=== PATIENT | female | born 1950 | race Caucasian/White ===

== ENCOUNTER → 2016-05-16 | Outpatient (CLI) | payer BC ==
[~2016-05-16] MED LIST: CA C1TAB28 PO; CALC600T5 PO; CRANBERRY CAPS; CYAN100018 PO; HCTZ; MAGN400C PO; MULT-761 PO; MULT1TAB53 PO; QUIN10TA PO; TAPE100T6 PO; TRAZ50TA18 PO; ZOLP10TA PO; [UNRECOGNIZED DRUG - REMARK]
== END | disposition home or self-care (01) ==
LOC: HKI 08:52
PROVIDERS: ATTEND Orthopaedic Surgery
DX: M17.11 Unilateral primary osteoarthritis, right knee (principal); M25.561 Pain in right knee; Z96.641 Presence of right artificial hip joint; Z96.652 Presence of left artificial knee joint
CPT/HCPCS: 20610; J1030

== ENCOUNTER → 2016-09-23 | Outpatient (CLI) | payer BC ==
--- NOTE | 2016-09-23 12:37 | RADRPT ---
PROCEDURE: Limited x-ray of both lower extremities. CLINICAL INDICATION: Bilateral leg pain. TECHNIQUE: Single frontal view of both lower extremities was obtained from the hips to the calves. COMPARISON: Right hip and pelvis radiographs dated 03/16/2016. FINDINGS: There is a right hip total arthroplasty which appears satisfactory. There is a normal appearing lef t hip. There are moderate degenerative changes of the right knee with osteophytes and joint space n arrowing. There is a left knee total arthroplasty. IMPRESSION: 1. Right hip arthroplasty left knee arthroplasty. 2. Moderate degenerative changes of the right knee. RPTAT: QQ .Lane Fiore MD, MD Date Time Electronically viewed and signed by .Lane Fiore MD, MD on 09/23/2016 12:36 .R/
--- NOTE | 2016-09-23 12:37 | RADRPT ---
PROCEDURE: Right knee radiographs. CLINICAL INDICATION: Right knee pain. TECHNIQUE: Four views. Weight bearing. Frontal, lateral, oblique, and patellar view. COMPARISON: 01/02/2015. FINDINGS: There is no fracture or dislocation. The soft tissues are normal. There are degenerative changes with osteophytes arising from all 3 joint compartment margins. There is lateral joint compartment narrowing and lateral patellofemoral joint compartment narrowing with associated deformity. There is no lytic or blastic lesion. There is no radiopaque foreign body. IMPRESSION: 1. Severe degenerative changes of the right knee. 2. Worse when compared with 01/02/2015. RPTAT: QQ .Lane Fiore MD, MD Date Time Electronically viewed and signed by .Lane Fiore MD, on 09/23/2016 12:37 .R/
== END | disposition home or self-care (01) ==
LOC: HKI 09:29
PROVIDERS: ATTEND Orthopaedic Surgery
DX: M25.562 Pain in left knee (principal); M25.561 Pain in right knee; R10.2 Pelvic and perineal pain; Z96.641 Presence of right artificial hip joint; Z96.652 Presence of left artificial knee joint
CPT/HCPCS: 77073

== ENCOUNTER 2016-10-04 05:40 | Inpatient (IN) | payer BC, MEDICARE ==
[2016-10-03 11:32] VITALS: BMI 26.7
[2016-10-04] VITALS (37 sets, daily range): BP systolic 104–142; BP diastolic 53–73; PULSE 60–90; RESP 11–18; Ht 167.6 cm; Wt 79.4 kg
[~2016-10-04] VITALS: Ht 167.6 cm; Wt 79.4 kg
[2016-10-04] MEDS ORDERED: BACITRACIN 50000 UNITS INJ ONE (06:36)
[2016-10-04] MEDS ORDERED: RANI300T3 PO (06:49)
[2016-10-04] MEDS ORDERED: FLUT9.9S NASAL (06:49)
[2016-10-04] MEDS ORDERED: PERICOLACE (06:49)
[2016-10-04] MEDS ORDERED: K DUR (06:49)
[2016-10-04] MEDS ORDERED: SODIUM CL BACTERIOSTATIC 30 ML INJ ONE (06:53)
[2016-10-04] MEDS ORDERED: POLYMYXIN B 500000 UNIT INJ ONE (06:53)
[2016-10-04] MEDS ORDERED: OXYC30TA PO (07:07)
[2016-10-04] MEDS ORDERED: CEPH500C PO (07:07)
[2016-10-04] MEDS ORDERED: MORP15TA92 PO (07:07)
[2016-10-04] MEDS ORDERED: MIDAZOLAM 1 MG/ML 2 ML INJ ONE (07:14)
[2016-10-04] MEDS ORDERED: PROPOFOL 100 ML ONE (07:14)
[2016-10-04] MEDS ORDERED: LIDOCAINE 2% (SDV) 5 ML INJ ONE (07:14)
--- NOTE | 2016-10-04 07:14 | HPN ---
Date/Time of Note Date/Time of Note DATE: 10/04/16 TIME: 07:13 Interval H&P Admission Note Pt. seen H&P reviewed: No system changes No change from H&P on 09/30/16 by AD Tejeda MD Oct 04, 2016 07:13
[2016-10-04] MEDS ORDERED: FENTAnyl 50 MCG/ML VIAL ONE (07:15)
[2016-10-04] MEDS ORDERED: CEFAZOLIN 1 GM INJ ONE (07:37)
[2016-10-04] MEDS ORDERED: ONDANSETRON 4 MG INJ ONE (07:56)
[2016-10-04] MEDS ORDERED: DEXAMETHASONE 4 MG/ML 1 ML INJ ONE (07:57)
[2016-10-04] MEDS ORDERED: FAMOTIDINE 20 MG INJ ONE (07:57)
[2016-10-04] MEDS: VANCOMYCIN 1 GM INJ ONE ×2 (08:22→08:29)
[2016-10-04] MEDS ORDERED: SOD CHLORIDE 0.9% IV ONE (09:00)
[2016-10-04] MEDS ORDERED: VANCOMYCIN 1 GM/NS 250 ML X1 BEFORE INCISION IVPB ONE (09:00)
[2016-10-04] MEDS ORDERED: PAIN COCKTAIL - VANCOMYCIN IRR ONE ×7 (09:00)
[2016-10-04] MEDS ORDERED: CELECOXIB 400 MG PO X1 DOSE PO ONE (09:00)
[2016-10-04] MEDS ORDERED: traMADOL 50 MG TAB X 1 DOSE PO ONE (09:00)
[2016-10-04] MEDS ORDERED: LACTATED RINGER'S 1,000 ML IV SCH (09:00)
[2016-10-04] MEDS ORDERED: BUPIVACAINE LIPOSOME/PF 266 MG/20 ML VIAL INFIL ONE (09:00)
[2016-10-04] MEDS ORDERED: oxyCODONE (CR) 10 MG TAB [oxyCONTIN] X1 DOSE PO ONE (09:00)
[2016-10-04] MEDS ORDERED: PREGABALIN 300 MG PO X1 PO ONE (09:00)
[2016-10-04] MEDS ORDERED: TRANEXAMIC ACID IV ONE (09:00)
[2016-10-04] MEDS ORDERED: EPHEDrine SULFATE 50 MG/5 ML SYG ONE (09:31)
--- NOTE | 2016-10-04 09:43 | OPR ---
Date/Time of Note Date/Time of Note DATE: 10/04/16 TIME: 09:39 Operative Report Free Text/Dictation Dictation # [id number] Preoperative Diagnosis Right Knee OA Postoperative Diagnosis Same Operation/Procedure Performed Right TKA Surgeon: AD INGRAM MD insurance administrative assistant: PEDRO LUNA PA-C Anesthesia: general, spinal Estimated Blood Loss: 50 - 100 ml's Specimens Bone and soft tissue Grafts/Implants Depuy Attune TKA Complications: None AD INGRAM MD Oct 04, 2016 09:43
[2016-10-04] MEDS ORDERED: NA PHOSPHATE/BIPHOS 133 ML ENEMA PR PRN (10:00)
[2016-10-04] MEDS ORDERED: NACL 0.9% 3 ML SYG IV SCH (10:00)
[2016-10-04] MEDS ORDERED: PROCHLORPERAZINE 10 MG INJ IV PRN (10:00)
[2016-10-04] MEDS ORDERED: MAGNESIUM HYDROXIDE 30ML CUP PO PRN (10:00)
[2016-10-04] MEDS ORDERED: ASPIRIN (EC) 325 MG TAB PO ONE (10:00)
[2016-10-04] MEDS ORDERED: BISACODYL 10 MG SUPP PR PRN (10:00)
[2016-10-04] MEDS ORDERED: FENTAnyl 50 MCG/ML VIAL IV PRN ×3 (10:00)
[2016-10-04] MEDS ORDERED: DIPHENHYDRAMINE 50 MG INJ IV PRN (10:00)
[2016-10-04] MEDS ORDERED: HYDROmorphONE (0.2 MG/ML) 10ML SYG IV PRN ×3 (10:00)
[2016-10-04] MEDS ORDERED: MEPERIDINE 25 MG INJ IV PRN (10:00)
[2016-10-04] MEDS ORDERED: DIPHENHYDRAMINE 25 MG CAP PO PRN (10:00)
[2016-10-04] MEDS ORDERED: ONDANSETRON 4 MG INJ IV PRN ×2 (10:00)
--- NOTE | 2016-10-04 10:07 | PN ---
Date/Time of Note Date/Time of Note DATE: 10/04/16 TIME: 10:06 Assessment/Plan Lines/Catheters IV Catheter Type (from Nrsg): Peripheral IV Assessment/Plan Assessment/Plan Stable in PACU, s/p right TKA -continue Ancef -pain meds as needed -ASA/SCDs -OOB with PT -check AM labs -monitor drain -d/c cordoba in AM XR of the right knee is pending at this time Subjective 24 Hr Interval Summary Stable in PACU. Denies pain. Moving all extremities. Exam/Review of Systems Vital Signs Vitals Vital Signs Date Time Temp Pulse Resp B/P Pulse Ox O2 Delivery O2 Flow Rate FiO2 10/04/16 09:46 97.7 10/04/16 09:42 90 16 142/71 100 Mask Exam Free Text/Dictation Hemovac: minimal Dressing dry Incision clean, dry, and intact without redness or drainage Thigh soft 5/5 Quadriceps, Tibialis Anterior, EHL, Gastroc, Soleus, Peroneals Normal sensation Palpable DT/PT, CR <2 sec No distal edema PEDRO LUNA PA-C Oct 04, 2016 10:07
[2016-10-04] MEDS: CEFAZOLIN 2 GM/50 ML (PMX) 50 ML IVPB SCH ×2 (10:24→17:37)
[2016-10-04] MEDS ORDERED: TRANEXAMIC ACID in SOD CHLORIDE 0.9% 100 ML FOR INTRAOP IVPB ONE (11:00)
[2016-10-04 11:03] LABS: HEMATOCRIT 33.5 % (37.0-47.0); HEMOGLOBIN 10.9 g/dl (12.0-16.0)
--- NOTE | 2016-10-04 11:12 | RADRPT ---
PROCEDURE: CR Right Knee CLINICAL INDICATION: Postop TECHNIQUE: An AP and lateral radiographs were submitted. COMPARISON: 09/23/2016 FINDINGS: Osseous Structures: Since the previous study, the patient has undergone a total knee replacement and the components appear well seated. The osseous elements are otherwise rarefied but intact. Join Spaces: The joint spaces are well maintained. No joint effusion is identified. Soft Tissues: A surgical drain has been placed. Subcutaneous air is evident and ventral capri hav e been placed. IMPRESSION: 1. The patient has undergone an interval total right knee replacement with the components well-seat ed. 2. Postop subcutaneous air, a drain and capri are noted. Physician Candace Date Time Electronically viewed and signed by Physician Candace on 10/04/2016 11:11 /
[2016-10-04 11:25] LABS: CALCIUM 8.9 mg/dl (8.4-10.2); CREATININE 0.58 mg/dl (0.44-1.00); POTASSIUM 3.7 mmol/L (3.5-5.1)
[2016-10-04] MEDS ORDERED: HYDROCHLOROTHIAZIDE 12.5 MG CAP PO SCH (13:00)
[2016-10-04] MEDS ORDERED: TRANEXAMIC ACID 790 MG in SOD CHLORIDE 0.9% 100 ML IVPB ONE ×2 (13:00→16:00)
[2016-10-04] MEDS: traMADol 50 MG TAB PO SCH ×2 (13:13→17:37)
[2016-10-04] MEDS: LACTATED RINGER'S 1,000 ML IV SCH ×2 (13:14→17:38)
[2016-10-04] MEDS: oxyCODONE 5 MG TAB PO PRN ×4 (13:57→23:33)
[2016-10-04] MEDS ORDERED: EXPAREL NOTE (BUPIVICAINE LIPOSOMAL) XX SCH (15:30)
[2016-10-04] MEDS: HYDROCHLOROTHIAZIDE 12.5 MG CAP PO SCH (17:00)
[2016-10-04] MEDS: PANTOPRAZOLE (EC) 40 MG TAB PO SCH (17:37)
[2016-10-04 18:25] LABS: CALCIUM 8.8 mg/dl (8.4-10.2); CREATININE 0.57 mg/dl (0.44-1.00); POTASSIUM 4.2 mmol/L (3.5-5.1)
[2016-10-04] MEDS: PREGABALIN 50 MG CAP PO SCH (20:35)
[2016-10-04] MEDS: RANITIDINE 150 MG TAB PO SCH (20:35)
[2016-10-04] MEDS: DOCUSATE SODIUM 100 MG CAP PO SCH (20:35)
[2016-10-04] MEDS: HYDROmorphONE 1 MG/ML SYG IV PRN (20:40)
[2016-10-05] VITALS: BP 120/56; RESP 19
[2016-10-05 00:07] VITALS: BP 120/56; RESP 18
[2016-10-05] MEDS: traMADol 50 MG TAB PO SCH ×4 (00:08→17:06)
[2016-10-05] MEDS: CEFAZOLIN 2 GM/50 ML (PMX) 50 ML IVPB SCH (01:09)
[2016-10-05] MEDS: LACTATED RINGER'S 1,000 ML IV SCH ×2 (01:38→05:11)
[2016-10-05] MEDS: HYDROmorphONE 1 MG/ML SYG IV PRN ×6 (02:36→22:01)
[2016-10-05] MEDS ORDERED: HYDROmorphONE 0.2 MG/ML PCA IV SCH ×2 (03:30→03:33)
[2016-10-05 05:36] LABS: HEMATOCRIT 28.5 % (37.0-47.0); HEMOGLOBIN 9.1 g/dl (12.0-16.0)
[2016-10-05 06:09] LABS: CALCIUM 8.7 mg/dl (8.4-10.2); CREATININE 0.61 mg/dl (0.44-1.00); POTASSIUM 4.1 mmol/L (3.5-5.1)
[2016-10-05 06:19] LABS: ADD UMIC YES; UR ASCORBIC ACID NEGATIVE (NEGATIVE); UR BACTERIA FEW /HPF (NONE SEEN); UR BILIRUBIN (Dip) NEGATIVE (NEGATIVE); UR BLOOD (Dip) 2+ mg/dL (NEGATIVE); UR CLARITY CLEAR (CLEAR); UR COLOR YELLOW (YELLOW); UR GLUCOSE (Dip) NEGATIVE (NEGATIVE); UR KETONES (Dip) NEGATIVE (NEGATIVE); UR LEUKOCYTE ESTERASE (Dip) 2+ Leu/ul (NEGATIVE); UR NITRITE (Dip) NEGATIVE (NEGATIVE); UR RBC 34 /HPF (0-5); UR SPECIFIC GRAVITY (Dip) 1.018 (1.003-1.030); UR TOTAL PROTEIN (Dip) NEGATIVE (NEGATIVE); UR UROBILINOGEN (Dip) NEGATIVE (NEGATIVE)
[2016-10-05] MEDS: PANTOPRAZOLE (EC) 40 MG TAB PO SCH ×2 (06:44→17:06)
[2016-10-05 08:02] VITALS: BP 113/57; RESP 19
--- NOTE | 2016-10-05 08:18 | PN ---
Date/Time of Note Date/Time of Note DATE: 10/05/16 TIME: 08:14 Assessment/Plan Lines/Catheters IV Catheter Type (from Nrsg): Peripheral IV Urinary Cath still in place: Yes Assessment/Plan Chief Complaint/Hosp Course 1. Status post total right knee arthroplasty Continue pain control continue PT OT Follow-up with general surgery 2 hyponatremia -Etiology likely due to transient SIADH from underlying pain and stress -We will do full workup by checking urine sodium and osmolarity serum osmolarity -We will DC IV fluids, limit free water intake no more than 800 cc 3. Hypertension continue current blood pressure at 4. Anemia monitor H&H 5. GI DVT prophylaxis 6 UTI continue Keflex 500 mg twice daily Problems: Subjective 24 Hr Interval Summary Free Text/Dictation Patient seen and examined. Complains of pain placed on a [employer]OVELTY CANDY [employer]KER Exam/Review of Systems Vital Signs Vitals Vital Signs Date Time Temp Pulse Resp B/P Pulse Ox O2 Delivery O2 Flow Rate FiO2 10/05/16 08:02 99.2 57 19 113/57 100 10/04/16 17:46 Room Air 10/04/16 09:58 8.0 Intake and Output 10/04/16 10/04/16 10/05/16 15:00 23:00 07:00 Intake Total 2107.9 ml 1320 ml 1550 ml Output Total 1060 ml 2590 ml 1200 ml Balance 1047.9 ml -1270 ml 350 ml Exam HEENT head is normocephalic pupils are reactive to light neck is supple cardiovascular regular rate Lungs show diminished breath sounds bases otherwise clear abdomen soft nontender palpation rebound guarding extremities are negative for clubbing cyanosis or edema and left leg Right leg and he has dressing clean dry intact neurologically no focal deficits dermatologically no rashes muscle skeletal no joint effusion Results Result Diagram: 10/05/16 0501 10/05/16 0501 Results 24 hrs Laboratory Tests Test 10/04/16 10:32 10/04/16 17:40 10/05/16 05:00 10/05/16 05:01 Hemoglobin 10.9 L 9.1 L Hematocrit 33.5 L 28.5 L Sodium Level 126 L 126 L 126 L Potassium Level 3.7 4.2 4.1 Chloride Level 96 L 96 L 96 L Carbon Dioxide Level 26 27 28 Anion Gap 8 7 L 6 L Blood Urea Nitrogen 9 9 10 Creatinine 0.58 0.57 0.61 Glucose Level 128 130 94 Calcium Level 8.9 8.8 8.7 Urine Color YELLOW Urine Clarity CLEAR Urine pH 6.0 Urine Specific Webber 1.018 Urine Ketones NEGATIVE Urine Nitrite NEGATIVE Urine Bilirubin NEGATIVE Urine Urobilinogen NEGATIVE Urine Leukocyte Esterase 2+ H Urine Microscopic RBC 34 H Urine Microscopic WBC 11 H Urine Bacteria FEW A Urine Hemoglobin 2+ H Urine Glucose NEGATIVE Urine Total Protein NEGATIVE Medications Medications Current Medications Miscellaneous Information 1 ea NOTE XX ; Start 10/04/16 at 15:30; Stop 10/08/16 at 15:29 Ranitidine HCl (Zantac) 300 mg QHS PO Last administered on 10/04/16 20:35; Admin Dose 300 MG; Start 10/04/16 at 21:00 Benazepril HCl (Lotensin) 10 mg DAILY PO ; Start 10/05/16 at 09:00 Tramadol HCl (Ultram) 50 mg Q6 PO Last administered on 10/05/16 06:44; Admin Dose 50 MG; Start 10/04/16 at 12:00; Stop 10/07/16 at 11:59 Oxycodone HCl (Roxicodone) 5 mg Q4H PRN PO PAIN LEVEL 1-3 Last administered on 10/04/16 14:02; Admin Dose 5 MG; Start 10/04/16 at 10:00 Oxycodone HCl (Roxicodone) 10 mg Q4H PRN PO PAIN LEVEL 4-7 Last administered on 10/04/16 23:33; Admin Dose 10 MG; Start 10/04/16 at 10:00 Hydromorphone HCl (Dilaudid) 1 mg Q3H PRN IV PAIN LEVEL 8-10 Last administered on 10/05/16 02:36; Admin Dose 1 MG; Start 10/04/16 at 10:00 Ondansetron HCl (Zofran Inj) 4 mg Q6H PRN IV NAUSEA AND/OR VOMITING; Start 02/10 at 10:00 Bisacodyl (Dulcolax Supp) 10 mg Q12H PRN [place] CONSTIPATION; Start 10/04/16 at 10: 00 Magnesium Hydroxide (Milk Of Mag) 30 ml BID PRN PO CONSTIPATION; Start at 10:00 Sodium Biphosphate/ Sodium Phosphate (Fleet Enema) 133 ml DAILY PRN [place] CONSTIPATION; Start 10/04/16 at 10:00 Docusate Sodium (Colace) 100 mg BID PO Last administered on 10/04/16 20:35; Admin Dose 100 MG; Start 10/04/16 at 21:00 Diphenhydramine HCl (Benadryl) 25 mg Q6H PRN PO PRURITUS; Start 10/04/16 at 10: 00 Aspirin (Ecotrin) 325 mg BID PO ; Start 10/05/16 at 21:00 Pantoprazole (Protonix Tab) 40 mg BID@06,18 PO Last administered on 10/05/16 06:44; Admin Dose 40 MG; Start 10/04/16 at 18:00 Pregabalin (Lyrica) 50 mg BID PO Last administered on 10/04/16 20:35; Admin Dose 50 MG; Start 10/04/16 at 21:00 Hydrochlorothiazide (Hydrochlorothiazide) 12.5 mg DAILY@17 PO ; Start 10/04/16 at 17:00 Hydromorphone HCl (Dilaudid [employer]) 6 mg Q4PCA IV Last administered on 10/05/16 03:48; Admin Dose 6 MG; Start 10/05/16 at 03:33 MORGAN CONNELLY DO Oct 05, 2016 08:18
[2016-10-05] MEDS: PREGABALIN 50 MG CAP PO SCH ×2 (08:44→21:09)
[2016-10-05] MEDS: CEPHALEXIN 500 MG CAP PO SCH ×2 (08:44→20:05)
[2016-10-05] MEDS: DOCUSATE SODIUM 100 MG CAP PO SCH ×2 (08:44→20:05)
[2016-10-05] MEDS: BENAZEPRIL 10 MG TAB PO SCH (08:45)
--- NOTE | 2016-10-05 08:55 | PN ---
Date/Time of Note Date/Time of Note DATE: 10/05/16 TIME: 08:50 Assessment/Plan Lines/Catheters IV Catheter Type (from Nrsg): Peripheral IV Joshua in Place (from Nrsg): Yes Assessment/Plan Assessment/Plan POD #1, s/p right TKA -d/c ancef -pain meds switched to oxycodone 30mg q4 and MS contin 20mg q8 as she was taking pre-operatively -ASA/SCDs -drain removed -OOB with PT -check AM labs -discharge planning. Will plan to go home upon discharge Subjective 24 Hr Interval Summary Having moderate pain overnight. H/o chronic pain, currently in pain management. 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 Denies f/c. VSS, afebrile. Will plan to go home upon discharge. Exam/Review of Systems Vital Signs Vitals Vital Signs Date Time Temp Pulse Resp B/P Pulse Ox O2 Delivery O2 Flow Rate FiO2 10/05/16 08:02 99.2 57 19 113/57 100 10/04/16 17:46 Room Air 10/04/16 09:58 8.0 Intake and Output 10/04/16 10/04/16 10/05/16 15:00 23:00 07:00 Intake Total 2107.9 ml 1320 ml 1550 ml Output Total 1060 ml 2590 ml 1200 ml Balance 1047.9 ml -1270 ml 350 ml Exam Free Text/Dictation Hemovac: 300cc Dressing dry Incision clean, dry, and intact without redness or drainage Thigh soft 5/5 Quadriceps, Tibialis Anterior, EHL, Gastroc, Soleus, Peroneals Normal sensation Palpable DT/PT, CR <2 sec No distal edema Results Result Diagram: 10/05/16 0501 10/05/16 0501 PEDRO LUNA PA-C Oct 05, 2016 08:54
[2016-10-05] MEDS ORDERED: CEPASTAT LOZENGE MT PRN (09:26)
[2016-10-05] MEDS: oxyCODONE 15 MG TAB PO PRN ×3 (11:08→20:05)
[2016-10-05] MEDS: morphine (ER) 15 MG TAB PO SCH ×2 (14:27→22:01)
[2016-10-05 16:38] VITALS: BP 121/62; PULSE 65
[2016-10-05] MEDS: HYDROCHLOROTHIAZIDE 12.5 MG CAP PO SCH (17:06)
[2016-10-05] MEDS ORDERED: HYDROmorphONE 1 MG/ML SYG IV PRN (18:00)
[2016-10-05 19:00] VITALS: BP 117/56; RESP 18
[2016-10-05] MEDS: RANITIDINE 150 MG TAB PO SCH (20:05)
[2016-10-05] MEDS: ASPIRIN (EC) 325 MG TAB PO SCH (21:09)
[2016-10-06] MEDS: traMADol 50 MG TAB PO SCH ×5 (00:07→23:44)
[2016-10-06] MEDS: oxyCODONE 15 MG TAB PO PRN ×6 (00:32→23:44)
[2016-10-06] MEDS: HYDROmorphONE 1 MG/ML SYG IV PRN ×5 (03:03→21:35)
[2016-10-06] MEDS: PANTOPRAZOLE (EC) 40 MG TAB PO SCH ×2 (04:48→17:28)
[2016-10-06 05:48] LABS: HEMATOCRIT 32.4 % (37.0-47.0)
[2016-10-06 06:05] LABS: CALCIUM 8.6 mg/dl (8.4-10.2); CREATININE 0.55 mg/dl (0.44-1.00); POTASSIUM 3.5 mmol/L (3.5-5.1)
[2016-10-06] MEDS: morphine (ER) 15 MG TAB PO SCH ×3 (06:18→21:33)
[2016-10-06] MEDS: PREGABALIN 50 MG CAP PO SCH ×2 (08:11→21:33)
[2016-10-06] MEDS: DOCUSATE SODIUM 100 MG CAP PO SCH ×2 (08:11→21:33)
[2016-10-06] MEDS: CEPHALEXIN 500 MG CAP PO SCH (08:11)
[2016-10-06] MEDS: BENAZEPRIL 10 MG TAB PO SCH (08:11)
[2016-10-06] MEDS: ASPIRIN (EC) 325 MG TAB PO SCH ×2 (08:11→21:33)
[2016-10-06 08:31] VITALS: BP 124/56; RESP 16
--- NOTE | 2016-10-06 08:32 | PN ---
Date/Time of Note Date/Time of Note DATE: 10/06/16 TIME: 08:29 Assessment/Plan Lines/Catheters IV Catheter Type (from Nrsg): Saline Lock Urinary Cath still in place: No Assessment/Plan Chief Complaint/Hosp Course 1. Status post total right knee arthroplasty Continue pain control continue PT OT Follow-up with general surgery 2 hyponatremia -Etiology likely due to transient SIADH from underlying pain and stress --Urine studies consistent with SIADH =-Sodium levels improving with free water restriction, continue 3. Hypertension continue current blood pressure at 4. Anemia monitor H&H 5. GI DVT prophylaxis 6 UTI -Urine cultures negative -We Will Discontinue Keflex 7. History of fungal urinary infection -We will give prophylactic Diflucan 150 mg p.o. 1 Problems: Subjective 24 Hr Interval Summary Free Text/Dictation Patient is complaining of possible fungal yeast infection -Pain is controlled Working with physical therapy Exam/Review of Systems Vital Signs Vitals Vital Signs Date Time Temp Pulse Resp B/P Pulse Ox O2 Delivery O2 Flow Rate FiO2 10/05/16 19:00 98.1 81 18 117/56 97 10/04/16 17:46 Room Air 10/04/16 09:58 8.0 Intake and Output 10/05/16 10/05/16 10/06/16 15:00 23:00 07:00 Intake Total 250 ml 660 ml 160 ml Output Total 850 ml 600 ml Balance 250 ml -190 ml -440 ml Exam HEENT head is normocephalic pupils are reactive to light neck is supple cardiovascular regular rate Lungs show diminished breath sounds bases otherwise clear abdomen soft nontender palpation rebound guarding extremities are negative for clubbing cyanosis or edema and left leg Right leg and he has dressing clean dry intact neurologically no focal deficits dermatologically no rashes muscle skeletal no joint effusion Results Result Diagram: 10/06/16 0505 10/06/16 0505 Results 24 hrs Laboratory Tests Test 10/05/16 14:30 10/05/16 14:35 10/06/16 05:05 10/06/16 05:42 Urine Osmolality 318 Sodium Level 125 L 131 L Osmolality 271 L Hemoglobin 10.0 L Hematocrit 32.4 L Potassium Level 3.5 Chloride Level 96 L Carbon Dioxide Level 30 Anion Gap 9 Blood Urea Nitrogen 7 Creatinine 0.55 Glucose Level 98 Calcium Level 8.6 Lab Scanned Report REFERENCE LAB Medications Medications Current Medications Miscellaneous Information 1 ea NOTE XX ; Start 10/04/16 at 15:30; Stop 10/08/16 at 15:29 Ranitidine HCl (Zantac) 300 mg QHS PO Last administered on 10/05/16 20:05; Admin Dose 300 MG; Start 10/04/16 at 21:00 Benazepril HCl (Lotensin) 10 mg DAILY PO Last administered on 10/06/16 08:11; Admin Dose 10 MG; Start 10/05/16 at 09:00 Tramadol HCl (Ultram) 50 mg Q6 PO Last administered on 10/06/16 06:18; Admin Dose 50 MG; Start 10/04/16 at 12:00; Stop 10/07/16 at 11:59 Oxycodone HCl (Roxicodone) 10 mg Q4H PRN PO PAIN LEVEL 4-7 Last administered on 10/04/16 23:33; Admin Dose 10 MG; Start 10/04/16 at 10:00 Ondansetron HCl (Zofran Inj) 4 mg Q6H PRN IV NAUSEA AND/OR VOMITING; Start 02/10 at 10:00 Bisacodyl (Dulcolax Supp) 10 mg Q12H PRN [place] CONSTIPATION; Start 10/04/16 at 10: 00 Magnesium Hydroxide (Milk Of Mag) 30 ml BID PRN PO CONSTIPATION Last administered on 10/05/16 21:08; Admin Dose 30 ML; Start 10/04/16 at 10:00 Sodium Biphosphate/ Sodium Phosphate (Fleet Enema) 133 ml DAILY PRN [place] CONSTIPATION; Start 10/04/16 at 10:00 Docusate Sodium (Colace) 100 mg BID PO Last administered on 10/06/16 08:11; Admin Dose 100 MG; Start 10/04/16 at 21:00 Diphenhydramine HCl (Benadryl) 25 mg Q6H PRN PO PRURITUS; Start 10/04/16 at 10: 00 Aspirin (Ecotrin) 325 mg BID PO Last administered on 10/06/16 08:11; Admin Dose 325 MG; Start 10/05/16 at 21:00 Pantoprazole (Protonix Tab) 40 mg BID@,18 PO Last administered on 10/06/16 04:48; Admin Dose 40 MG; Start 10/04/16 at 18:00 Pregabalin (Lyrica) 50 mg BID PO Last administered on 10/06/16 08:11; Admin Dose 50 MG; Start 10/04/16 at 21:00 Hydrochlorothiazide (Hydrochlorothiazide) 12.5 mg DAILY@17 PO Last administered on 10/05/16 17:06; Admin Dose 12.5 MG; Start 10/04/16 at 17:00 Cephalexin (Keflex) 500 mg BID PO Last administered on 10/06/16 08:11; Admin Dose 500 MG; Start 10/05/16 at 09:00 Oxycodone HCl (Roxicodone) 30 mg Q4H PRN PO PAIN LEVEL 6-10 Last administered on 10/06/16 04:48; Admin Dose 30 MG; Start 10/05/16 at 11:02 Morphine Sulfate (Ms Contin (Er)) 15 mg Q8 PO Last administered on 10/06/16 06 :18; Admin Dose 15 MG; Start 10/05/16 at 14:00 Phenol (Cepastat Lozenge) 1 lozenge Q1H PRN [place] sorethroat Last administered on 10/05/16 15:22; Admin Dose 1 LOZENGE; Start 10/05/16 at 09:26 Hydromorphone HCl (Dilaudid) 1 mg Q2H PRN IV PAIN LEVEL 8-10 Last administered on 10/06/16 08:11; Admin Dose 1 MG; Start 10/05/16 at 16:27 MORGAN CONNELLY DO Oct 06, 2016 08:32
[2016-10-06] MEDS ORDERED: FLUCONAZOLE 150 MG TAB PO ONE (09:30)
[2016-10-06 13:58] VITALS: BP 123/67; RESP 18
--- NOTE | 2016-10-06 15:30 | PN ---
Date/Time of Note Date/Time of Note DATE: 10/06/16 TIME: 15:26 Assessment/Plan Lines/Catheters IV Catheter Type (from Nrsg): Saline Lock Joshua in Place (from Nrsg): No Assessment/Plan Assessment/Plan Stable POD #2, s/p right TKA -pain meds as needed. Continue current pain management -ASA/SCDs -OOB with PT -check AM labs -dressing changed -discharge planning. Will likely be discharge home tomorrow Subjective 24 Hr Interval Summary No acute overnight events. Having mild pain but has chronic pain. VSS, afebrile. H&H stable. Progressing with PT. Exam/Review of Systems Vital Signs Vitals Vital Signs Date Time Temp Pulse Resp B/P Pulse Ox O2 Delivery O2 Flow Rate FiO2 10/06/16 13:58 97.4 81 18 123/67 96 10/04/16 17:46 Room Air 10/04/16 09:58 8.0 Intake and Output 10/05/16 10/05/16 10/06/16 15:00 23:00 07:00 Intake Total 250 ml 660 ml 160 ml Output Total 850 ml 600 ml Balance 250 ml -190 ml -440 ml Exam Free Text/Dictation Dressing dry Incision clean, dry, and intact without redness or drainage Thigh soft 5/5 Quadriceps, Tibialis Anterior, EHL, Gastroc, Soleus, Peroneals Normal sensation Palpable DT/PT, CR <2 sec No distal edema Results Result Diagram: 10/06/16 0505 10/06/16 0505 PEDRO LUNA PA-C Oct 06, 2016 15:29
[2016-10-06] MEDS: HYDROCHLOROTHIAZIDE 12.5 MG CAP PO SCH (17:28)
[2016-10-06 20:22] VITALS: BP 106/56; RESP 20
[2016-10-06] MEDS: RANITIDINE 150 MG TAB PO SCH (21:34)
[2016-10-07] MEDS: oxyCODONE 15 MG TAB PO PRN ×2 (04:45→08:41)
[2016-10-07] MEDS: HYDROmorphONE 1 MG/ML SYG IV PRN ×2 (05:19→10:56)
[2016-10-07 05:52] LABS: HEMATOCRIT 27.1 % (37.0-47.0); HEMOGLOBIN 8.6 g/dl (12.0-16.0)
[2016-10-07] MEDS: morphine (ER) 15 MG TAB PO SCH (06:22)
[2016-10-07] MEDS: PANTOPRAZOLE (EC) 40 MG TAB PO SCH (06:22)
[2016-10-07] MEDS: traMADol 50 MG TAB PO SCH (06:22)
[2016-10-07 06:49] LABS: CALCIUM 8.4 mg/dl (8.4-10.2); CREATININE 0.56 mg/dl (0.44-1.00); POTASSIUM 4.1 mmol/L (3.5-5.1)
--- NOTE | 2016-10-07 07:13 | PDOCDIS ---
Discharge Instructions DIAGNOSIS Discharge Diagnosis s/p right TKA CONDITION Patient Condition: Good HOME CARE INSTRUCTIONS: Diet Instructions: RegularSpecial Diet: REGULAR ACTIVITY: Activity Restrictions: Slowly Increase Activity Rest between Activity Avoid heavy lifting Do not operate Machinery Do not operate Power Tool Avoid Heavy Housework Keep Limb Elevated Bathing Restrictions: Shower FOLLOW UP/APPOINTMENTS Follow-up Plan follow up in the office on 10/14/16 OTHER ORDERS: Other Orders: S/P TKA Physical Therapy: Three times per week at home x 2 weeks Daily in Rehab/SNF WB STATUS: WBAT 1. Strengthening exercises for both upper and un-operated lower extremities. 2. Gait training with front wheeled walker 3. Active range of motion exercises to operative knee. 4. When not working on knee range of motion exercises, distal towel roll under operative ankle/distal calf to promote full extension. 5. DO NOT PUT ANYTHING BEHIND OPERATIVE KNEE!!! 6. Quadriceps and hamstring strengthening. 7. May switch to cane in contra lateral hand 6 weeks after surgery. 8. Physical Therapy can open case if nursing is not available. 9. Use Ice Machine as instructed from date of surgery while at rest 3X/day. 10. Patient requires mobile SCDs to reduce risk of developing DVT following TKA. Patient will use the mobile SCDs for 30 days postoperatively. Bathing assistance by home health aide twice weekly if Medicare patient. Occupational Therapy: Evaluation for assistive devices and ADL training. Wound Care: Keep incision dry & covered with Tegaderm until first visit with Dr. Cardoso Anticoagulation Orders: Enteric Coated Aspirin 325 mg po bid x 6 weeks from date of surgery Follow-up:Call for an appointment with Dr. Cardoso in 1 week after discharged from hospital at DME Orders: FWW, 3-in-1 Commode, Polar ice machine, Mobile SCDs PEDRO LUNA PA-C Oct 07, 2016 07:12
[2016-10-07] MEDS ORDERED: TRAM50TA2 PO (07:14)
[2016-10-07] MEDS ORDERED: ASPI325T32 PO (07:14)
[2016-10-07] MEDS ORDERED: PANT40TA4 PO (07:14)
[2016-10-07] MEDS ORDERED: PREG50CA PO (07:14)
[2016-10-07 08:38] VITALS: BP 116/57; RESP 18
[2016-10-07] MEDS: DOCUSATE SODIUM 100 MG CAP PO SCH (08:41)
[2016-10-07] MEDS: ASPIRIN (EC) 325 MG TAB PO SCH (08:41)
[2016-10-07] MEDS: PREGABALIN 50 MG CAP PO SCH (08:41)
[2016-10-07] MEDS: BENAZEPRIL 10 MG TAB PO SCH (08:42)
--- NOTE | 2016-10-07 09:55 | RADRPT ---
PROCEDURE: Ultrasound of the right lower extremity venous system. CLINICAL INDICATION: Right leg pain and swelling, deep venous thrombosis TECHNIQUE: Day scale with and without compression, color doppler, spectral doppler of the venous system of the right lower extremity was performed. Venous augmentation maneuvers were utilized. COMPARISON: No prior studies are available for comparison. FINDINGS: Common femoral vein: Patent. Femoral vein: Patent. Popliteal vein: Patent. Calf veins: Patent. No soft tissue abnormalities are identified. IMPRESSION: No evidence of a deep vein thrombosis within the right lower extremity. RPTAT: AADD .Reymundo Nayak MD, MD Date Time Electronically viewed and signed by .Reymundo Nayak MD, on 10/07/2016 09:55 .B/
--- NOTE | 2016-10-07 10:16 | PN ---
Date/Time of Note Date/Time of Note DATE: 10/07/16 TIME: 10:14 Assessment/Plan Lines/Catheters IV Catheter Type (from Nrsg): Saline Lock Joshua in Place (from Nrsg): No Assessment/Plan Assessment/Plan Stable POD #3, s/p right TKA -pain meds managed by his pain management doctor -ASA/SCDs -OOB with PT -dressing changed -Venous doppler RLE, r/o DVT -if doppler negative, d/c home today -follow up in the office in 1 week Subjective 24 Hr Interval Summary No acute overnight events. Having mild pain but managed with her current pain regimen. VSS, afebrile. Stable for discharge home today. Exam/Review of Systems Vital Signs Vitals Vital Signs Date Time Temp Pulse Resp B/P Pulse Ox O2 Delivery O2 Flow Rate FiO2 10/07/16 08:38 98.6 73 18 116/57 97 10/04/16 17:46 Room Air 10/04/16 09:58 8.0 Intake and Output 10/06/16 10/06/16 10/07/16 15:00 23:00 07:00 Intake Total 520 ml 280 ml Output Total 600 ml Balance -80 ml 280 ml Exam Free Text/Dictation Dressing dry Incision clean, dry, and intact without redness or drainage Thigh soft 5/5 Quadriceps, Tibialis Anterior, EHL, Gastroc, Soleus, Peroneals Normal sensation Palpable DT/PT, CR <2 sec No distal edema Results Result Diagram: 10/07/16 0433 10/07/16 0433 PEDRO LUNA PA-C Oct 07, 2016 10:16
--- NOTE | 2016-10-07 10:34 | CONS ---
Date/Time of Note Date/Time of Note DATE: 10/07/16 TIME: 10:33 Consult Date/Type/Reason Admit Date/Time Oct 04, 2016 at 05:40 Initial Consult Date Type of Consultation: im Subjective pt. seen and examined no new c/o. going home drop of h/h noted. no active bleeding. she is ambulating with walker, pain controlled. Objective Vital Signs Date Time Temp Pulse Resp B/P Pulse Ox O2 Delivery O2 Flow Rate FiO2 10/07/16 08:38 98.6 73 18 116/57 97 10/04/16 17:46 Room Air 10/04/16 09:58 8.0 Intake and Output 10/06/16 10/06/16 10/07/16 15:00 23:00 07:00 Intake Total 520 ml 280 ml Output Total 600 ml Balance -80 ml 280 ml Results/Medications Result Diagram: 10/07/16 0433 10/07/16 0433 Results 24 hrs Laboratory Tests Test 10/07/16 04:33 Hemoglobin 8.6 L Hematocrit 27.1 L Sodium Level 127 L Potassium Level 4.1 Chloride Level 96 L Carbon Dioxide Level 29 Anion Gap 6 L Blood Urea Nitrogen 7 Creatinine 0.56 Glucose Level 78 Calcium Level 8.4 Medications Current Medications Miscellaneous Information 1 ea NOTE XX ; Start 10/04/16 at 15:30; Stop 10/08/16 at 15:29 Ranitidine HCl (Zantac) 300 mg QHS PO Last administered on 10/06/16 21:34; Admin Dose 300 MG; Start 10/04/16 at 21:00 Benazepril HCl (Lotensin) 10 mg DAILY PO Last administered on 10/07/16 08:42; Admin Dose 10 MG; Start 10/05/16 at 09:00 Tramadol HCl (Ultram) 50 mg Q6 PO Last administered on 10/07/16 06:22; Admin Dose 50 MG; Start 10/04/16 at 12:00; Stop 10/07/16 at 11:59 Oxycodone HCl (Roxicodone) 10 mg Q4H PRN PO PAIN LEVEL 4-7 Last administered on 10/04/16 23:33; Admin Dose 10 MG; Start 10/04/16 at 10:00 Ondansetron HCl (Zofran Inj) 4 mg Q6H PRN IV NAUSEA AND/OR VOMITING; Start 02/10 at 10:00 Bisacodyl (Dulcolax Supp) 10 mg Q12H PRN [place] CONSTIPATION; Start 10/04/16 at 10: 00 Magnesium Hydroxide (Milk Of Mag) 30 ml BID PRN PO CONSTIPATION Last administered on 10/05/16 21:08; Admin Dose 30 ML; Start 10/04/16 at 10:00 Sodium Biphosphate/ Sodium Phosphate (Fleet Enema) 133 ml DAILY PRN [place] CONSTIPATION; Start 10/04/16 at 10:00 Docusate Sodium (Colace) 100 mg BID PO Last administered on 10/07/16 08:41; Admin Dose 100 MG; Start 10/04/16 at 21:00 Diphenhydramine HCl (Benadryl) 25 mg Q6H PRN PO PRURITUS; Start 10/04/16 at 10: 00 Aspirin (Ecotrin) 325 mg BID PO Last administered on 10/07/16 08:41; Admin Dose 325 MG; Start 10/05/16 at 21:00 Pantoprazole (Protonix Tab) 40 mg BID@06,18 PO Last administered on 10/07/16 06:22; Admin Dose 40 MG; Start 10/04/16 at 18:00 Pregabalin (Lyrica) 50 mg BID PO Last administered on 10/07/16 08:41; Admin Dose 50 MG; Start 10/04/16 at 21:00 Hydrochlorothiazide (Hydrochlorothiazide) 12.5 mg DAILY@17 PO Last administered on 10/06/16 17:28; Admin Dose 12.5 MG; Start 10/04/16 at 17:00 Oxycodone HCl (Roxicodone) 30 mg Q4H PRN PO PAIN LEVEL 6-10 Last administered on 10/07/16 08:41; Admin Dose 30 MG; Start 10/05/16 at 11:02 Morphine Sulfate (Ms Contin (Er)) 15 mg Q8 PO Last administered on 10/07/16 06 :22; Admin Dose 15 MG; Start 10/05/16 at 14:00 Phenol (Cepastat Lozenge) 1 lozenge Q1H PRN [place] sorethroat Last administered on 10/05/16 15:22; Admin Dose 1 LOZENGE; Start 10/05/16 at 09:26 Hydromorphone HCl (Dilaudid) 1 mg Q2H PRN IV PAIN LEVEL 8-10 Last administered on 10/07/16t 05:19; Admin Dose 1 MG; Start 10/05/16 at 16:27 Assessment/Plan Chief Complaint/Hosp Course 1. Status post total right knee arthroplasty Continue pain control continue PT OT Follow-up with general surgery 2 hyponatremia -Etiology likely due to transient SIADH from underlying pain and stress --Urine studies consistent with SIADH =-Sodium levels improving with free water restriction, continue 3. Hypertension continue current blood pressure at 4. Anemia monitor H&H 5. GI DVT prophylaxis 6 UTI -Urine cultures negative -We Will Discontinue Keflex 7. History of fungal urinary infection -We will give prophylactic Diflucan 150 mg p.o. 1 Problems: ALBERTO EDWARDS MD Oct 07, 2016 10:34
[2016-10-07 14:41] LABS: MICROALBUMIN 1.8 mg/dL
--- NOTE | 2016-10-11 15:58 | OPR ---
DATE OF OPERATION: 10/04/2016 DATE: 10/04/2016 PREOPERATIVE DIAGNOSIS: Right knee osteoarthritis. POSTOPERATIVE DIAGNOSIS: Right knee osteoarthritis. OPERATION PERFORMED: Right total knee arthroplasty. SURGEON: Taurus Cardoso MD CAGE OPERATOR: ATA Solorzano COMPONENTS USED: DePuy Attune size 5 femoral component, size 4 tibial base plate, 6-mm polyethylene insert, and a 35 patellar button. ANESTHESIA: Spinal plus general endotracheal intubation, plus periarticular injection. ANESTHESIOLOGIST: Nona Shannon MD TOURNIQUET TIME: 59 minutes. ESTIMATED BLOOD LOSS: 50 mL INTRAVENOUS FLUIDS: 2000 mL crystalloid. SPECIMENS: Bone and soft tissue. DRAINS: Hemovac x1. COMPLICATIONS: None. DISPOSITION: The patient tolerated the procedure well and was taken to the recovery room in stable condition. INDICATIONS: The patient is a 66-year-old woman who has had progressively worsening pain in the right knee with radiograph findings of severe osteoarthritis. She has failed nonsurgical means of treatment to control her pain including activity modifications, pain medications and ambulatory assistive devices, as well as intraarticular injections. Despite these measures, she has had worsening pain. I felt she would benefit from a total knee arthroplasty. I felt the patient would benefit from a total knee arthroplasty. The risks, benefits, and alternatives of the procedure were explained in detail to the patient. I explained the risks of the surgery to include but not be limited to, bleeding and possible need for blood transfusion; infection; pain; stiffness; neurovascular injury with possible numbness, weakness, and/or paralysis anywhere from the knee down to the toes; fracture; instability; dislocation; wear and/or loosening of the prosthesis and possible need for future revision; blood clots; pulmonary embolism; and anesthetic complications such as heart attack, stroke, GI bleed, pneumonia, and/or . Ample time was allowed for the patient to ask questions, all of which were addressed and answered. The patient understood the risks involved and wished to proceed. Informed consent was signed prior to the procedure. PROCEDURE: The patient's right knee was initialed with a marking pen in the preoperative area to identify the correct operative site. The patient was brought to the operating room and transferred from the [facility] to the operating table where a spinal anesthetic was administered. The patient was then anesthetized and intubated. A Joshua catheter was placed. A timeout was performed to confirm that the right leg was the correct operative site. The patient was given 2 g of Ancef within one hour prior to the procedure. A tourniquet was placed on the operative proximal thigh. The operative knee and lower extremity were prepped and draped in the usual sterile fashion. The operative lower extremity was elevated and exsanguinated with an Esmarch tourniquet. The proximal thigh tourniquet was inflated to 300 mmHg. The knee was flexed. A midline incision was made and carried down through the subcutaneous tissue and fat with sharp dissection. Limited medial and lateral flaps were raised. A median patellar arthrotomy approach was performed. Synovial fluid was normal in color and consistency. The patella was everted and the knee flexed. There were severe tricompartmental osteoarthritic changes noted. A medial release was performed at the joint line to the midcoronal plane. The ACL and PCL and remnants of the menisci were excised. The stepped drill was used to open up the femoral canal which was irrigated and sucked dry. The intramedullary guide nohelia was passed up the femur, and the distal cutting block was pinned into place for a 5 degree valgus cut, taking 10 mm of bone off distally. The oscillating saw was used to make the cut. The tibia was subluxed anteriorly. The tibial cutoff jig was placed over the center of the talus distally and over the junction of the medial and middle third of the tibial tubercle proximally. The guide was pinned into place and the oscillating saw was used to make the cut. The tibia was sized. The extension gap was checked and accommodated a 6 mm spacer block with the knee in full extension. There was no varus or valgus instability. At this point, the femur was sized with the posterior referencing guide. Two holes were drilled in 3 degrees of external rotation. The two holes were in line with the transepicondylar axis, perpendicular to Chan's line, and in line with the tibial cutoff jig brought up with the knee flexed 90 degrees and tensed with 2 lamina spreaders, suggesting the femoral rotation was correct. The four-in-one cutting block was pinned into place. The anterior and posterior cuts and chamfer cuts were made with the oscillating saw. The flexion gap was checked and accommodated the 6 mm spacer block at 90 degrees. There was no varus or valgus instability, suggesting the flexion and extension gaps were now equal. The central box was cut out on the femur. The tibia was drilled and punched in proper rotation. Trial components were placed into position with a trial insert. The patella was cut from 20 mm down to 13 mm and sized. Three holes were drilled and the trial button placed in position. With all the trials now in place, the knee was taken through range of motion and came to full extension as evidenced by the fact that with the foot on my abdomen and axial loading, there was no tendency for the knee to flex. The knee was able to be flexed to 125 degrees with good patellar tracking with no lateral tilt or subluxation. At this point, I was satisfied with the overall range of motion, stability, and patellar tracking. The trials were removed. The real components were opened. Two bags of cement were mixed, one with and one without premixed antibiotic. The knee was irrigated with antibiotic saline and sucked dry. Once the cement was in a doughy stage, the real components were cemented into place. The knee was held in full extension, and the patellar component was held with a patellar clamp. All excess cement was removed with curettes. As the cement was hardening, the synovial/capsular layer was infiltrated with a mixture of 150 mg of 0.5% Bupivacaine, 8 mg of Duramorph, 300 mcg of epinephrine, 30 mg of Toradol, 100 mcg of clonidine, 750 mg of cefuroxime and 86 mL of normal saline, followed by an injection of 266 mg of liposomal Bupivacaine. A Hemovac drain was placed in the deep portion of the wound and brought out the anterolateral thigh. Once the cement was completely hardened, the trial liner was removed, and the real insert was opened. The tourniquet was let down, and there was good hemostasis. The knee was then irrigated with a mixture of betadine/saline and then antibiotic saline with pulsatile lavage. The real insert was impacted into the tibia and reduced onto to the femur. The arthrotomy was closed with a few interrupted #1 Ethibond in a [id number] fashion, and then closed in a watertight fashion with a running #2 Stratafix suture. Knee flexion was checked against gravity and came to 125 degrees. The subcutaneous layer was irrigated and closed with 2-0 Statafix, and then 3-0 Vicryl and then capri on the skin. The wound was covered with an occlusive dressing, and secured with cast padding and a bias dressing. The drain was secured with 3-0 nylon. The sponge and needle counts were correct at the end of the case. The patient was then awakened, extubated, and taken to the recovery room in stable condition. Dictated By: Taurus Cardoso MD /salena/daphney /Document#: [id number] BRYSON
== END 2016-10-07 11:50 | disposition home or self-care (01) | DRG 470 ==
LOC: REC 05:40 → EDSTATUS 11:00 → MS1 11:39
PROVIDERS: ADMIT Orthopaedic Surgery; ATTEND Orthopaedic Surgery
PROC: 0SRC0J9 Replacement of Right Knee Joint with Synthetic Substitute, Cemented, Open Approach (ICD-10-PCS; principal; 2016-10-04 07:00)
DX: M17.11 Unilateral primary osteoarthritis, right knee (principal); E87.1 Hypo-osmolality and hyponatremia; N39.0 Urinary tract infection, site not specified; D64.9 Anemia, unspecified; G89.29 Other chronic pain; Z87.440 Personal history of urinary (tract) infections; Z98.84 Bariatric surgery status; Z88.8 Allergy status to other drugs, medicaments and biological substances
CPT/HCPCS: 73560; 80048; 81001; 81003; 82043; 83930; 83935; 84155; 84295; 84300; 85014; 85018; 86850; 86900; 86901; 86920; 87081; 87086; 93971; 97110; 97116; 97163; 97167; 97530; C1776; C9290; J0171; J0690; J0735; J1100; J1170; J1885; J2250; J2274; J2405; J3010; J3370; J7120

== ENCOUNTER → 2016-10-14 | Outpatient (CLI) | payer BC ==
[~2016-10-14] MED LIST changes: +ASPI325T32 PO; -CRANBERRY CAPS; +FLUT9.9S NASAL; +K DUR; +MORP15TA92 PO; -MULT1TAB53 PO; +OXYC30TA PO; +PANT40TA4 PO; +PERICOLACE; +PREG50CA PO; +RANI300T3 PO; -TAPE100T6 PO; +TRAM50TA2 PO; -TRAZ50TA18 PO; -ZOLP10TA PO
--- NOTE | 2016-10-14 10:11 | PN ---
Date/Time of Note Date/Time of Note DATE: 10/14/16 TIME: 10:07 Assessment/Plan VTE Prophylaxis VTE Prophylaxis Intervention: ambulation, other Assessment/Plan Assessment/Plan ASSESSMENT: 10 days status post right total knee arthroplasty PLAN: The capri were removed today, and Steri-Strips were applied. She is to continue aspirin 325 mg twice daily for DVT prophylaxis. Additionally she is to continue to use her narcotic pain medication prescribed by her pain management doctor. She will continue physical therapy with home health and transition to an outpatient physical therapy program. Given the soft tissue swelling of her right lower extremity, we will obtain a stat venous Doppler to rule out DVT. In lieu of it being negative, we will see her back in 4 weeks for repeat evaluation. She is to call the office in the meantime if she has any concerns. Subjective 24 Hr Interval Summary Free Text/Dictation The patient presents today for her first postoperative evaluation on her right knee. She is 10 days status post right total knee arthroplasty. She is doing satisfactory overall. She denies any fevers or chills. She states she has been up on her right leg more than she should be, and as a result has some soft tissue swelling of the right lower extremity. She did have a Doppler done in the hospital which was negative for any DVT. She has been taking aspirin twice daily for DVT prophylaxis. Additionally she is taking her oxycodone and MS Contin prescribed by her pain management doctor. She is currently doing physical therapy with home health. She presents today for her first postoperative evaluation. Exam/Review of Systems Exam On exam today, she is alert and oriented 4, and in no acute distress. She is ambulating with a front wheel walker. Exam of the incision demonstrates it to be clean, dry, and intact. Lake are in place. Range of motion is excellent , 0105. Varus and valgus forces are stable. She does have 2+ pitting edema of the right lower extremity distally. There is no erythema, warmth, pus, or drainage noted. Compartments are otherwise soft. Homans sign is negative. She is neurovascularly intact distally. IMAGING: X-rays of the right knee were obtained today and reviewed by me. They demonstrate anatomic alignment with no fractures or dislocations identified. PEDRO LUNA PA-C Oct 14, 2016 10:11
--- NOTE | 2016-10-14 12:12 | RADRPT ---
PROCEDURE: XR Knee. CLINICAL INDICATION: Right knee pain. TECHNIQUE: AP and lateral view of the right knee were obtained. The images reviewed on a PACS wor kstation. COMPARISON: October 04, 2016 FINDINGS: Complete right knee replacement is identified. Prosthetic components are in appropriate position an d alignment. No fractures or destructive lesions are observed. The soft tissues are grossly unremar kable. IMPRESSION: Status post right knee replacement. Prosthetic components are in appropriate position and alignment . RPTAT: AA .Audie Ryan MD, Date Time Electronically viewed and signed by .Audie Ryan MD, on 10/14/2016 12:11 .P/
== END | disposition home or self-care (01) ==
LOC: HKI 09:45
PROVIDERS: ATTEND Orthopaedic Surgery
DX: Z47.1 Aftercare following joint replacement surgery (principal); Z96.651 Presence of right artificial knee joint

== ENCOUNTER → 2016-10-17 | Outpatient (CLI) | payer BC ==
--- NOTE | 2016-10-24 15:40 | DS ---
DATE OF ADMISSION: 10/17/2016 DATE OF DISCHARGE: 10/20/2016 DISCHARGE CONDITION: Stable. ADMITTING DIAGNOSIS: Right knee osteoarthritis. DISCHARGE DIAGNOSIS: Status post right total knee arthroplasty. PROCEDURE PERFORMED: Right total knee arthroplasty. HOSPITAL COURSE: This is a 66-year-old female who was seen in the clinic complaining of right knee pain. She has chronic pain issues and x-rays demonstrated advanced osteoarthritis of the right knee. It was thought she would benefit from a right total knee arthroplasty. On 10/04/2016, the patient was admitted and taken to the operating room where she underwent a right total knee arthroplasty. There were no intraoperative complications. The patient tolerated the procedure well. She was taken to the recovery room in stable condition. Pain was well controlled with oral pain medication. She was started on aspirin and SCDs for DVT prophylaxis. She remained hemodynamically stable and neurovascularly intact throughout her hospital stay. She began physical therapy on postoperative day 1, and continued to make good progress. Ultimately , she was deemed stable for discharge home on postoperative day 3. Prior to discharge, the incision was inspected and noted to be clean, dry and intact. Dressing changes were done prior to the patient going home. LABORATORY ANALYSIS: Hemoglobin 8.6, hematocrit 27.1. Chemistry panel was within normal limits. DISCHARGE MEDICATIONS: 1. Tramadol 50 mg. 2. Aspirin 325 mg. 3. Oxycodone 30 mg. 4. Protonix 40 mg. 5. Lyrica 50 mg. Additionally, the patient is to resume all of her normal home medications. Her post-operative pain will be managed by her pain management doctor DISCHARGE INSTRUCTIONS: The patient will be discharged home in stable condition. She is to resume a normal diet. She is weightbearing as tolerated on the right lower extremity. She will begin physical therapy with home health. She will be discharged home with the medications noted above, and is to resume all of her normal home medications. She is to call the office or go to the emergency room for any concerns including increased redness, swelling, drainage , fever or any concerns regarding the operation or site of incision. FOLLOW UP: The patient is to follow up in the office on 10/14/2016. Dictated By: Khushboo Bynum PA-C SUPERVISING PHYSICIAN: Taurus Cardoso MD /salena/mal /Document#: [id number] MTDD
== END | disposition home or self-care (01) ==
LOC: HKI 15:23
PROVIDERS: ATTEND Orthopaedic Surgery
DX: M17.11 Unilateral primary osteoarthritis, right knee (principal); Z09 Encounter for follow-up examination after completed treatment for conditions other than malignant neoplasm; Z96.651 Presence of right artificial knee joint; Z79.82 Long term (current) use of aspirin

== ENCOUNTER → 2016-11-07 | Outpatient (CLI) | END | disposition home or self-care (01) | DX: Z47.1 Aftercare following joint replacement surgery (principal); M17.11 Unilateral primary osteoarthritis, right knee; Z96.651 Presence of right artificial knee joint ==

== ENCOUNTER → 2016-11-11 | Outpatient (CLI) | payer BC, MEDICARE | END | disposition home or self-care (01) | LOC: HKI 10:27 | PROVIDERS: ATTEND Orthopaedic Surgery | DX: Z47.1 Aftercare following joint replacement surgery (principal); Z96.651 Presence of right artificial knee joint; M17.11 Unilateral primary osteoarthritis, right knee; I10 Essential (primary) hypertension; E78.00 Pure hypercholesterolemia, unspecified; M10.9 Gout, unspecified ==